=== PATIENT | male | born 1975 | race Caucasian/White ===

== ENCOUNTER 2020-12-19 11:36 | Emergency (ER) | payer BC ==
[~2020-12-19] VITALS: Ht 170.2 cm; Wt 61.2 kg
[2020-12-19] MEDS ORDERED: HYDROCODONE/APAP 7.5MG-325MG 1 EA TAB PO ONE (12:00)
[2020-12-19 14:04] VITALS: BP 136/71
== END 2020-12-19 14:06 | disposition home or self-care (01) ==
LOC: ER 13:51
DX: S52.135A Nondisplaced fracture of neck of left radius, initial encounter for closed fracture (principal); W00.0XXA Fall on same level due to ice and snow, initial encounter; Y93.01 Activity, walking, marching and hiking; Y92.008 Other place in unspecified non-institutional (private) residence as the place of occurrence of the external cause
CPT/HCPCS: 99283